=== PATIENT | female | born 1990 | race African-American/Black ===

== ENCOUNTER 2020-01-21 09:53 | Day surgery (SDC) | payer MEDICAID ==
[~2020-01-21 09:53] MED LIST: BUPIVACAINE HCL 0.25 % INJ/PF (2.5 MG/1 ML) 30 ML VIAL ONE; BUPIVACAINE HCL 0.5%-EPI 1:200000 INJ/PF 30 ML VIAL ONE; BUPIVACAINE INJ/PF LIPOSOME/PF 266 MG/20 ML SDV ONE; RINGERS SOLUTION,LACTATED 1,000 ML IV PRN
[2020-01-21 11:10] LABS: HEMATOCRIT 29.8 % (36.0-47.0); HEMOGLOBIN 9.4 g/dL (12.0-15.5); MEAN CORPUSCULAR HEMOGLOBIN 22.9 pg (27.0-33.4); MEAN CORPUSCULAR HGB CONC 31.7 g/dL (32.0-36.0); MEAN CORPUSCULAR VOLUME 72 fl (80-97); PLATELET COUNT 384 10^3/uL (150-450); RED BLOOD COUNT 4.13 10^6/uL (3.72-5.28); RED CELL DISTRIBUTION WIDTH 32.7 % (11.5-14.0); WHITE BLOOD COUNT 5.5 10^3/uL (4.0-10.5)
[2020-01-21] MEDS ORDERED: ONDANSETRON HCL INJ/PF 4 MG/2 ML SDV ONE (11:41)
[2020-01-21] MEDS ORDERED: PROPOFOL INJ 200 MG/20 ML VIAL IV ONE (11:41)
[2020-01-21] MEDS ORDERED: DEXAMETHASONE SOD PHOSPHATE INJ 4 MG/1 ML VIAL ONE (11:41)
[2020-01-21] MEDS ORDERED: MIDAZOLAM 2 MG/2 ML INJ ONE (11:41)
[2020-01-21] MEDS ORDERED: FENTANYL CITRATE INJ/PF 100 MCG/2 ML AMPUL ONE (11:42)
[2020-01-21] MEDS ORDERED: PROMETHAZINE HCL INJ 25 MG/1 ML VIAL ONE (12:05)
--- NOTE | 2020-01-21 12:50 | Discharge Summary ---
Discharge Summary (SDC) - Discharge Final Diagnosis: anal fissure and internal hemorrhoids Date of Surgery: 01/21/20 Discharge Date: 01/21/20 Condition: Good Treatment or Instructions: DIET: 1) Clear liquid diet for 10 days. 2) Continue with fiber supplement twice daily. 3) Continue with stool softener twice daily. FOLLOW UP: 1) You may follow up at [facility] in 2 weeks. Call clinic sooner with questions or concerns. Discharge Diet: Other (Comments) - clear liquid for ten days Discharge Activity: Activity As Tolerated Report the Following to Your Physician Immediately: Increase in Pain, Fever over 101 Degrees, Unusual Bleeding, Large Clots
--- NOTE | 2020-01-21 12:51 | Operative Report ---
Operative Report DATE OF SURGERY: 01/21/20 PREOPERATIVE DIAGNOSIS: 1. Anal pain, rule out mass, fissure. 2. Constipatio n. 3. Morbid obesity. 4. 14-week intrauterine POSTOPERATIVE DIAGNOSIS: Same with. 1. Circumferential hemorrhoids, collapsed. 2. Posterior anal fissure. 3. Fecal retention OPERATION: 1. Examination under anesthesia. 2. Fecal disimpaction. 3. Injection of Exparel in the perianal tissue SURGEON: AZUCENA BLANCA ANESTHESIA: Spinal TISSUE REMOVED OR ALTERED: None ESTIMATED BLOOD LOSS: Scant INTRAOPERATIVE FINDINGS: See below PROCEDURE: The patient was taken to the preop holding of the main operating room where spinal anesthesia was induced by Dr. Lazar. Patient was then placed in the supine position, legs in the lithotomy position, and the perineum prepped and draped sterile fashion Surgical plan surgical timeout were conducted. The patient remained hemodynamically stable, with good saturations. An anal rectal exam was performed. The patient was sufficiently relaxed. There was no evidence of anal stenosis. The anal canal admitted index finger without difficulty and we immediately encountered a significant amount of soft stool. We proceeded to digitally disimpact the anal rectal canal of large volume of feces. Once this was accomplished, we dilated the external anal sphincter to to adult fingers. The findings were significant for hemorrhoids at the anal verge, and a posterior anal fissure, chronic. There was no evidence of tumor, mass, or stenosis. At this point felt the operation was complete and the diagnosis made. We anesthetized the perianal tissue with full-strength Exparel, 20 cc. A large Gelfoam plug was inserted into the anal canal. She tolerated procedure well. She was taken recovery in stable condition. The physician assistant front desk manager, Ms. Gresham, provided assistance during this case by: Assisting retracting tissue, instillation of local anesthesia and closure of skin incisions.
[2020-01-21 17:19] VITALS: BP 129/71
== END 2020-01-21 16:30 | disposition home or self-care (01) ==
LOC: OROUT 09:53
PROVIDERS: ATTEND Surgery
DX: K56.41 Fecal impaction (principal); K60.2 Anal fissure, unspecified; O22.42 Hemorrhoids in pregnancy, second trimester; Z3A.14 14 weeks gestation of pregnancy; E66.9 Obesity, unspecified; Z68.41 Body mass index [BMI] 40.0-44.9, adult; K62.5 Hemorrhage of anus and rectum; K62.89 Other specified diseases of anus and rectum; Z88.0 Allergy status to penicillin; D64.9 Anemia, unspecified; Z87.891 Personal history of nicotine dependence; Z79.899 Other long term (current) drug therapy
CPT/HCPCS: 36415; 85027; 00902; 45915; J1100; J2550; J2405; J2704; C9290; 902; J2250; J3010; J3490

== ENCOUNTER 2020-07-05 10:25 | Inpatient (IN) | payer MEDICAID ==
[2020-07-05 11:40] LABS: APPEARANCE,URINE CLEAR; BILIRUBIN,URINE NEGATIVE (NEGATIVE); COLOR,URINE YELLOW; GLUCOSE, URINE NEGATIVE (NEGATIVE); KETONES,URINE NEGATIVE (NEGATIVE); LEUKOCYTE ESTERASE,URINE MODERATE (NEGATIVE); NITRITE,URINE NEGATIVE (NEGATIVE); PROTEIN,URINE NEGATIVE (NEGATIVE); URINE SPECIFIC GRAVITY 1.016; UROBILINOGEN,URINE NEGATIVE mg/dL (<2.0)
[2020-07-05 11:43] LABS: ABSOLUTE EOSINOPHILS # (AUTO) 0.1 10^3/uL (0.0-0.6); ABSOLUTE MONOCYTES (AUTO) 0.5 10^3/uL (0.1-1.4); MONOCYTES % (AUTO) 7.4 % (3-13); TOTAL CELLS COUNTED % (AUTO) 100 %
[2020-07-05 11:54] LABS: ABSOLUTE LYMPHOCYTES (AUTO) 1.2 10^3/uL (0.5-4.7); BASOPHILS % (AUTO) 0.3 % (0-2); HEMATOCRIT 34.2 % (36.0-47.0); HEMOGLOBIN 11.4 g/dL (12.0-15.5); LYMPHOCYTES % (AUTO) 17.9 % (13-45); MEAN CORPUSCULAR HEMOGLOBIN 28.9 pg (27.0-33.4); MEAN CORPUSCULAR HGB CONC 33.2 g/dL (32.0-36.0); MEAN CORPUSCULAR VOLUME 87 fl (80-97); PLATELET COUNT 246 10^3/uL (150-450); RED BLOOD COUNT 3.94 10^6/uL (3.72-5.28); SEGMENTED NEUTROPHILS % (AUTO) 73.4 % (42-78); WHITE BLOOD COUNT 6.8 10^3/uL (4.0-10.5)
[2020-07-05 11:59] LABS: URINE AMPHETAMINES SCREEN NEGATIVE; URINE BARBITURATES SCREEN NEGATIVE; URINE BENZODIAZEPINES SCREEN NEGATIVE; URINE COCAINE SCREEN NEGATIVE; URINE MARIJUANA (THC) SCREEN NEGATIVE; URINE METHADONE SCREEN NEGATIVE; URINE PHENCYCLIDINE SCREEN NEGATIVE
[2020-07-05] MEDS ORDERED: DINOPROSTONE 10 MG VAGINAL INSERT.SR ONE (12:50)
[2020-07-05] MEDS ORDERED: DINOPROSTONE 10 MG VAGINAL INSERT.SR PV PRN (14:09)
[2020-07-05] MEDS ORDERED: RINGERS SOLUTION,LACTATED 1,000 ML IV PRN (14:09)
--- NOTE | 2020-07-05 14:34 | Admission Physical ---
Datetime Report Generated by CPN: 07/05/2020 14:33 CURRENT ADMISSION Hx Assessment: The History has been Reviewed and is Current Chief Complaint: Scheduled Induction of Labor Indication for Induction: Chronic Secondary HTN (Specify Cause); PreEclampsia Admit Impression : Term, Intrauterine ; Induction of Labor Admit Plan: Admit to Unit; Initiate Labor Induction Protocol ALLERGIES Medication Allergies: No Medication Allergies: No Known Allergies (07/05/2020) Latex: No Latex Allergies OBSTETRICAL HISTORY EDC: 07/15/2020 00:00 : 1 Para: 0 Livin Gestational Diabetes: No Rh Sensitization: No Incompetent Cervix: No IRVIN: No Infertility: No ART Treatment: No Uterine Anomaly: No IUGR: No Hx Previous C/S: No Macrosomia: No Hx Loss/Stillborn: No PIH: Yes Hx : No Placenta Previa/Abruption: No Depression/PP Depression: No PTL/PROM: No Post Hemorrhage: No Current Procedures: Ultrasound; NST Obstetrical History Comments: G1 - current, ghtn SEE RECORDS Alcohol: No Marijuana : No Cocaine: No Other Illicit Drugs: No Cigarettes: Current Everyday Smoker. 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 Surgery: No Heart Disease: No Hosp/Surgery: Yes Autoimmune Disorder: No Anesthetic Complications: No Kidney Disease: No Abnormal Pap Smear: No Neuro/Epilepsy: No Psychiatric Disorders: No Other Medical Diseases: No Hepatitis/Liver Disease: No Significant Family History: No Varicosities/Phlebitis: No Trauma/Violence : No Thyroid Dysfunction: No Medical History Comments: hemorrhoid removal 01/2020 INFECTIOUS HISTORY Gonorrhea: No Genital Herpes: No Chlamydia: No Tuberculosis: No Syphilis: No Hepatitis: No HIV/AIDS Exposure: No Rash or Viral Illness: No HPV: No PHYSICAL EXAM General: Normal Neurologic: Normal Heart: Normal Lungs: Normal Abdomen: Normal Extremities: Normal Vital Signs: Reviewed; Within Normal Limits VAGINAL EXAM Dilatation: 1 Effacement: thick Station: -2 Contraction Comments: irreg MEMBRANES Membranes: Intact FETUS A EGA: 38.4 Monitoring: External US FHR Category: Category I Presentation: Vertex Admit Comment: 30yo G1 @ 38w4d into L_D for induction of labor secondary to CHTN with superimpossed pre-e. Pt is A pos, Rubella Immune, GBS neg. also complicated by morbid obesity. Pt was supposed to be induced last night and just arrived in unit for cervidil induction due to census last night. Cervix posterior and still just at 1cm, plan for cervidil unchanged. Reviewed with Dr. Castanon who is the OB production machine operator today and agrees with poc. PLANS FOR LABOR AND DELIVERY Labor and Delivery: None Pain Management: Epidural Feeding Preference: Breast Benefit of Breast Feed Discussed: Yes Circumcision: Yes INFORMED CONSENT Assignment: Aquiles Castanon MD Signature: with User ID: Renaldo : with User ID: [email or web address]
[2020-07-05] MEDS ORDERED: NALBUPHINE HCL INJ 10 MG/1 ML AMPULE INJ ONE (19:46)
[2020-07-05] MEDS ORDERED: PROMETHAZINE HCL INJ 25 MG/1 ML VIAL IV ONE (19:46)
[2020-07-05] MEDS ORDERED: NALBUPHINE HCL INJ 10 MG/1 ML AMPULE ONE (19:50)
[2020-07-05] MEDS ORDERED: PROMETHAZINE HCL INJ 25 MG/1 ML VIAL ONE (19:50)
[2020-07-06] MEDS ORDERED: OXYTOCIN/0.9 % SODIUM CHLORIDE 30 UNIT/500 ML RTUINJ ONE (02:09)
[2020-07-06] MEDS ORDERED: OXYTOCIN/0.9 % SODIUM CHLORIDE 30 UNIT/500 ML RTUINJ IV PRN (02:30)
[2020-07-06] MEDS ORDERED: NIFEDIPINE 30 MG TAB.ER.24 PO ONE ×3 (08:15→08:18)
[2020-07-06] MEDS ORDERED: LABETALOL HCL INJ 20 MG/4 ML DISP.SYRIN IV ONE (08:16)
[2020-07-06 11:24] LABS: ABSOLUTE MONOCYTES (AUTO) 0.6 10^3/uL (0.1-1.4); ABSOLUTE NEUT (AUTO) 7.9 10^3/uL (1.7-8.2); BASOPHILS % (AUTO) 0.3 % (0-2); EOSINOPHILS % (AUTO) 0.2 % (0-6); HEMATOCRIT 36.1 % (36.0-47.0); HEMOGLOBIN 12.2 g/dL (12.0-15.5); MEAN CORPUSCULAR HEMOGLOBIN 29.1 pg (27.0-33.4); MEAN CORPUSCULAR HGB CONC 33.7 g/dL (32.0-36.0); MEAN CORPUSCULAR VOLUME 86 fl (80-97); MONOCYTES % (AUTO) 6.5 % (3-13); PLATELET COUNT 263 10^3/uL (150-450); RED BLOOD COUNT 4.18 10^6/uL (3.72-5.28); RED CELL DISTRIBUTION WIDTH 20.9 % (11.5-14.0); TOTAL CELLS COUNTED % (AUTO) 100 %; WHITE BLOOD COUNT 9.5 10^3/uL (4.0-10.5)
[2020-07-06 11:41] LABS: ALBUMIN 3.6 g/dL (3.5-5.0); ALKALINE PHOSPHATASE 166 U/L (38-126); ANION GAP 10 (5-19); ASPARTATE AMINO TRANSFERASE 34 U/L (14-36); BILIRUBIN,DIRECT 0.2 mg/dL (0.0-0.4); BILIRUBIN,TOTAL 0.6 mg/dL (0.2-1.3); BLOOD UREA NITROGEN 6 mg/dL (7-20); CALCIUM 9.4 mg/dL (8.4-10.2); CARBON DIOXIDE 18 mmol/L (22-30); CHLORIDE 108 mmol/L (98-107); GLUCOSE 87 mg/dL (75-110); TOTAL PROTEIN 7.4 g/dL (6.3-8.2); URIC ACID 4.1 mg/dL (2.5-6.2)
[2020-07-06] MEDS ORDERED: ONDANSETRON HCL INJ/PF 4 MG/2 ML SDV ONE ×2 (11:54→18:59)
[2020-07-06] MEDS ORDERED: EPHEDRINE SULFATE INJ 50 MG/1 ML AMPULE ONE ×2 (12:18→23:16)
[2020-07-06] MEDS ORDERED: FENTANYL/BUPIVACAINE/NS/PF 300 MCG/150 ML RTUINJ EPI ONE (12:18)
[2020-07-06] MEDS ORDERED: ROPIVACAINE HCL 0.2% INJ/PF (2 MG/ML) 20 ML SDV ONE ×2 (12:19→23:05)
[2020-07-06] MEDS ORDERED: ONDANSETRON HCL INJ/PF 4 MG/2 ML SDV IV ONE ×2 (13:00→18:57)
[2020-07-06] MEDS ORDERED: PROMETHAZINE HCL INJ 25 MG/1 ML VIAL IV ONE (17:08)
[2020-07-06] MEDS ORDERED: NALBUPHINE HCL INJ 10 MG/1 ML AMPULE INJ ONE (17:08)
[2020-07-06] MEDS ORDERED: NALBUPHINE HCL INJ 10 MG/1 ML AMPULE ONE (17:13)
[2020-07-06] MEDS ORDERED: PROMETHAZINE HCL INJ 25 MG/1 ML VIAL ONE (17:13)
[2020-07-06] MEDS ORDERED: MISOPROSTOL 0.2 MG TABLET ONE (17:14)
[2020-07-06] MEDS ORDERED: OXYTOCIN 10 UNIT/ML VIAL ONE (17:14)
[2020-07-06] MEDS ORDERED: LIDOCAINE 1% INJ-PF (10 MG/ML) 30 ML SDV ONE (17:14)
[2020-07-06] MEDS ORDERED: HYDRALAZINE HCL INJ/PF 20 MG/1 ML SDV IV ONE (18:57)
[2020-07-06] MEDS ORDERED: HYDRALAZINE HCL INJ/PF 20 MG/1 ML SDV ONE (18:59)
[2020-07-06] MEDS ORDERED: FENTANYL CITRATE INJ/PF 100 MCG/2 ML AMPUL ONE (23:52)
[2020-07-07] MEDS ORDERED: METHYLERGONOVINE MALEATE INJ/PF 0.2 MG/1 ML AMPULE ONE ×2 (02:10→02:12)
[2020-07-07] MEDS ORDERED: OXYTOCIN/0.9 % SODIUM CHLORIDE 30 UNIT/500 ML RTUINJ ONE (02:25)
[2020-07-07] MEDS ORDERED: FENTANYL CITRATE INJ/PF 100 MCG/2 ML AMPUL ONE (02:31)
[2020-07-07] MEDS ORDERED: OXYCODONE-ACETAMINOPHEN 5-325 MG TABLET ONE (02:32)
[2020-07-07] MEDS ORDERED: GENTAMICIN SULFATE INJ 80 MG/2 ML VIAL ONE (06:22)
[2020-07-07] MEDS ORDERED: CLINDAMYCIN 900 MG/D5W RTU 900 MG/50 ML RTUPB IV ONE (06:23)
[2020-07-07] MEDS: CLINDAMYCIN 900 MG/D5W RTU 900 MG/50 ML RTUPB IV SCH ×3 (06:31→22:42)
[2020-07-07] MEDS: GENTAMICIN SULFATE INJ 80 MG/2 ML VIAL IV SCH ×2 (06:59→16:39)
--- NOTE | 2020-07-07 07:14 | Delivery Summary ---
Del Sum A-C Datetime Report Generated by CPN: 07/07/2020 07:14 DELIVERY PERSONNEL DELIVERY PERSONNEL: [id number] Delivery Doctor:: Tosha Tate MD Labor and Delivery Nurse:: Luna Watkins RNsynthetic department supervisor Nurse:: Loco Bunn RN Flight Physician/FAMILY SOCIOLOGIST: Blanka NicoleTORY Flight Physician/FAMILY SOCIOLOGIST: Ntaalya Cheung, ST MATERNAL INFORMATION Delivery Anesthesia: Epidural Medications After Delivery: Pitocin 10 Units IM; Pitocin 30 Units in 500ml NS/D5W; Methergine 0.2mg IM; Cytotec 1000mcg Per Rectum/Vagina Meds After Delivery Comment: #2 bag of pitocin 30/500 mL Delivery QBL: 3000 Delivery QBL Comment: Total QBL= 3102 Maternal Complications: None Provider Comments: Called to patients room as she was complete and plus 2 station. Patient pushed through 2 contracitons and delivered a viable male infant. was vigorous and cord clamping was delayed for 30 seconds . Cord clamped cut and infant placed skin to skin. Uterine atony encountered. Bimanual massage done and clearing of clots from uterus. Pitocin infusing and second dose given along with Cytotec 1,000mcg PV. Uterus remained filling with blood and gushing with massage. Methergine given and bimanual massage continued. Once slowing down vaginal repair done of a laceration extending 2-3 cm into the left sulcus of the vaginal vault. Repaired in layered closure starting at apex. Fundal massage continuous. Further gush of bright red blood noted. 2 Units PRBC requested and second Large bore IV started. FLuids running in one IV and blood will begin in second. VSS. No tachycardia or hypotension but due to EBL of approximately 2500cc blood was given by emergent release. Continuous fundal massage maintained. Bladder was drained. Fundus felt firm. VSS remained stable. Both Mother and stable currenlty but will monitor closely LABOR SUMMARY EDC: 07/15/2020 00:00 No. Babies in Womb: 1 Attempted: No Labor Anesthesia: Epidural LABOR INFORMATION Reason for Induction: Chronic Primary/Essential HTN; Pre-Eclampsia Onset of Labor: 07/06/2020 10:00 Complete Dilatation: 07/06/2020 20:08 Cervical Ripening Agents: Cervidil Oxytocin: Induction Group B Beta Strep: negative Antibiotics # of Doses: n/a Name of Antibiotic Given: n/a Steroids Given: None Reason Steroids Not Administered: Not Applicable MEMBRANES Membranes Rupture Method: Artificial Rupture of Membranes: 07/06/2020 09:56 Length of Rupture (hr): 16.05 Amniotic Fluid Color: Clear Amniotic Fluid Amount: Scant Amniotic Fluid Odor: None STAGES OF LABOR Stage 1 hr: 10 Stage 1 min: 8 Stage 2 hr: 5 Stage 2 min: 51 Stage 3 hr: 0 Stage 3 min: 1 Total Time in Labor hr: 16 Total Time in Labor min: 0 VAGINAL DELIVERY Episiotomy: None Laceration #1: Perineal Laceration Extension #1: Second Degree Laceration Repair: Yes Laceration Repair Note: Repaired with 2-0 chromic in a layered closure. Sponge Count Correct: Yes CSECTION DELIVERY Primary Indication: N/A Secondary Indication: N/A CSection Incidence: N/A Labor: N/A Elective: N/A CSection Incision: N/A BABY A INFORMATION Infant Delivery Date/Time: 07/07/2020 01:59 Method of Delivery: Vaginal Born in Route : No : N/A Forceps: N/A Vacuum Extraction: N/A Shoulder Dystocia : No PRESENTATION/POSITION BABY A Presentation: Cephalic Cephalic Presentation: Vertex Vertex Position: Left Occipital Anterior Breech Presentation: N/A PLACENTA INFORMATION BABY A Placenta Delivery Time : 07/07/2020 02:00 Placenta Method of Delivery: Spontaneous Placenta Status: Delivered SCORES BABY A Heart Rate 1 min: >100 bpm Resp Effort 1 min: Good Cry Reflex Irritability 1 min: Cough or Sneeze or Pulls Away Muscle Tone 1 min: Active Motion Color 1 min: Body [place], Extremities Blue Resuscitation Effort 1 min: Tactile Stimulation SCORE 1 MIN: 9 Heart Rate 5 min: >100 bpm Resp Effort 5 min: Good Cry Reflex Irritability 5 min: Cough or Sneeze or Pulls Away Muscle Tone 5 min: Active Motion Color 5 min: Body [place], Extremities Blue SCORE 5 MIN: 9 INFORMATION BABY A Gestational Age at Delivery: 38.6 Gestational Status: Early Term- 37- 38.6 Weeks Outcome : Liveborn Condition : Stable Infant Sex: Male IDENTIFICATION BABY A Verification Date/Time: 07/07/2020 05:37 ID Band Number: [id number] Mother's Name Verified: Yes Infant RN Verifying Infant: Elise AngelesFELIX kellogg/Rosita Kauffman RN WEIGHT/LENGTH BABY A Infant Birthweight (gm): 3800 Weight (lb): 8 Weight (oz): 6 Length (in): 21.00 Infant Length (cm): 53.34 CORD INFORMATION BABY A No. Cord Vessels: 3 Nuchal Cord : Around Neck x1, Loose Cord Blood Taken: Yes-For Storage (Mom's Blood type +) (Annotations: Data stored by [facility] on behalf of user) Suction: Mouth; Nose ASSESSMENT BABY A Complications: None Physical Findings at Delivery: Within Normal Limits Skin to Skin: Yes Transferred To: Remains with Mother BABY B INFORMATION : N/A SIGNATURES Signature: with User ID: Rachelle : with User ID: Rachelle
--- NOTE | 2020-07-07 07:14 | Birth Certificate Data ---
Cert Data Datetime Report Generated by DORIAN: 07/07/2020 07:14 CERTIFICATE DATA 47a. Care: Yes (07/05/2020 09:37:Stacia Willoughby RN) 47b. Date of First Visit: 01/04/2020 00:00 (07/05/2020 09:37:Stacia Willoughby RN) 47c. Date of Last Visit: 06/29/2020 00:00 (07/05/2020 09:37:Atiya Ordonez RN) 47d. Number of Visits: 14 (07/05/2020 09:37:Atiya Ordonez RN) 48a. Number of Prev Live Births: 0 (07/05/2020 09:37:Stacia Willoughby RN) 48b. Now Livin (07/05/2020 09:37:Stacia Willoughby RN) 48c. Live Births Now : 0 (07/05/2020 09:37:QS system process) 48e. Losses: 0 (07/05/2020 09:37:Stacia Willoughby RN) RISK FACTORS IN THIS 49a. Diabetes: No (07/05/2020 09:37:Stacia Willoughby RN) 49b. Hypertension: Yes (07/05/2020 09:37:Stacia Willoughby RN) Type of Hypertension: Chronic (07/05/2020 09:37:Arielle Recinos RN) 49c. Previous Births: 0 (07/05/2020 09:37:Atiya Ordonez RN) 49d. Stillborns: No (07/05/2020 09:37:Stacia Willoughby RN) 49d. IUGR: No (07/05/2020 09:37:Stacia Willoughby RN) 49e. Infertility Treatment: No (07/05/2020 09:37:Stacia Willoughby RN) 49f. Previous Cesareans: 0 (07/05/2020 09:37:Atiya Ordonez RN) Mother's Height 50b. Height Inches: 66 (07/06/2020 08:09:QS system process) Mother's Weight 51a. Pre- Weight (lbs): 300 (07/05/2020 09:37:Stacia Willoughby RN) 51b. Weight at Delivery (lbs): 341 (07/06/2020 08:09:QS system process) 52. Dt Last Normal Menses Began: 10/09/2019 00:00 (07/05/2020 09:37:Arielle Recinos RN) Infections Present/Treated 53a. Gonorrhea: No (07/05/2020 09:37:Stacia Willoughby RN) Results this Hospital Visit : Negative (07/05/2020 09:37:Stacia Willoughby RN) 53b. Syphilis: No (07/05/2020 09:37:Stacia Willoughby RN) Results this Hospital Visit: NONREACTIVE (07/05/2020 11:13:QS system process) 53c. Chlamydia: No (07/05/2020 09:37:Stacia Willoughby RN) Results this Hospital Visit: Negative (07/05/2020 09:37:Arielle Recinos RN) 53d. Hepatitis B: No (07/05/2020 09:37:Stacia Willoughby RN) Results this Hospital Visit: Negative (07/05/2020 09:37:Stacia Willoughby RN) 53e. Hepatitis C: Negative (07/05/2020 09:37:Stacia Willoughby RN) 53h. Mother Tested for HBsAG: Yes (07/05/2020 09:37:Stacia Willoughby RN) 53i. Date Tested: 01/04/2020 00:00 (07/05/2020 09:37:Stacia Willoughby RN) 53j. Test Result: Negative (07/05/2020 09:37:Stacia Willoughby RN) Obstetric Procedures 54a, b, c. Obstetric Procedures: Ultrasound; NST (07/05/2020 09:37:Stacia Willoughby RN) Cigarette Smoking 55a. 3 Months Before Preg - Ci (07/05/2020 09:37:Stacia Willoughby RN) 55b. 1st Trimester of Preg- Ci (07/05/2020 09:37:Stacia Willoughby RN) 55c. 2nd Trimester of Preg- Ci (07/05/2020 09:37:Stacia Willoughby RN) 55d. 3rd Trimester of Preg- Ci (07/05/2020 09:37:Stacia Willoughby RN) Onset of Labor 56a. PROM >12 Hrs: 16.05 (07/05/2020 09:37:QS system process) 56b. Precipitous Labor <3 Hrs: 16 (07/05/2020 09:37:QS system process) 56c. Prolonged Labor > 20 Hrs: 16 (07/05/2020 09:37:QS system process) 57a. Induction of Labor: Induction (07/05/2020 09:37:Arielle Recinos RN) 57a. Induction of Labor: Cervidil (07/05/2020 13:07:Stacia Willoughby RN) 57c. Non-Vertex Presentation A: Vertex (07/05/2020 09:37:Atiya Ordonez RN) 57d. Steroids - Lung Mat: None (07/05/2020 09:37:Arielle Recinos RN) 57d. Steroids - Lung Mat: Not Applicable (07/05/2020 09:37:Arielle Recinos RN) 57f. Mat [place] or Temp >100.4: 99.1 (07/05/2020 09:37:Atiya Ordonez RN) 57g. Moderate/Heavy Meconium: Clear (07/06/2020 09:56:Arielle Recinos RN) 57h. Intolerance of Labor: N/A (07/05/2020 09:37:Luna Watkins RN) : N/A (07/05/2020 09:37:Luna Watkins RN) 57i. Epidural/Spinal Anesthesia: Epidural (07/05/2020 09:37:Arielle Recinos RN) Method of Delivery 58a. Forceps - Unsuccessful A: N/A (07/05/2020 09:37:Atiya Ordonez RN) 58b. Vacuum - Unsuccessful A: N/A (07/05/2020 09:37:Atiya Ordonez RN) 58c. Presentation at 58c. Presentation at - A : Vertex (07/05/2020 09:37:Atiya Ordonez RN) 58c. Presentation at - A : N/A (07/05/2020 09:37:Atiya Ordonez RN) 58c. Presentation at - A : Cephalic (07/05/2020 19:28:Atiya Ordonez RN) Final Route and Method of Del 58d. Baby A Route/Delivery: Vaginal (07/05/2020 09:37:Atiya Ordonez RN) 58e. Trial of Labor Attempted: No (07/05/2020 09:37:Arielle Recinos RN) 58e. Trial of Labor Attempted A: N/A (07/05/2020 09:37:Arielle Recinos RN) 58e. Trial of Labor Attempted B: N/A (07/05/2020 09:37:Arielle Recinos RN) Maternal Morbidity 59b. 3rd or 4th Degree Lacs: Perineal (07/05/2020 09:37:Tosha Tate, MD) Birthweight Baby A: 3800 (07/05/2020 09:37:Danisha Nelson RN) 60a. Pounds : 8 (07/05/2020 09:37:QS system process) 60b. Ounces: 6 (07/05/2020 09:37:QS system process) 61. GA at Delivery Baby A: 38.6 (07/05/2020 09:37:Atiya Ordonez RN) : Early Term- 37- 38.6 Weeks (07/05/2020 09:37:QS system process) 62a. 5 Minute Baby A: 9 (07/05/2020 09:37:QS system process)
[2020-07-07 07:27] LABS: HEMATOCRIT 34.2 % (36.0-47.0); HEMOGLOBIN 11.2 g/dL (12.0-15.5); MEAN CORPUSCULAR HEMOGLOBIN 28.1 pg (27.0-33.4); MEAN CORPUSCULAR HGB CONC 32.6 g/dL (32.0-36.0); MEAN CORPUSCULAR VOLUME 86 fl (80-97); PLATELET COUNT 254 10^3/uL (150-450); RED BLOOD COUNT 3.97 10^6/uL (3.72-5.28); RED CELL DISTRIBUTION WIDTH 19.5 % (11.5-14.0); WHITE BLOOD COUNT 21.5 10^3/uL (4.0-10.5)
[2020-07-07 07:32] LABS: HEMATOCRIT 33.3 % (36.0-47.0); HEMOGLOBIN 11.1 g/dL (12.0-15.5); MEAN CORPUSCULAR HEMOGLOBIN 29.2 pg (27.0-33.4); MEAN CORPUSCULAR HGB CONC 33.3 g/dL (32.0-36.0); MEAN CORPUSCULAR VOLUME 88 fl (80-97); RED BLOOD COUNT 3.81 10^6/uL (3.72-5.28); RED CELL DISTRIBUTION WIDTH 20.8 % (11.5-14.0)
[2020-07-07 07:33] LABS: ABSOLUTE LYMPHOCYTES# (MANUAL) 0.5 10^3/uL (0.5-4.7); ANISOCYTOSIS 2+; BAND NEUTROPHILS % (MANUAL) 1 % (3-5); BASOPHILS % (MANUAL) 0 % (0-2); EOSINOPHILS % (MANUAL) 0 % (0-6); LYMPHOCYTES % (MANUAL) 3 % (13-45); MONOCYTES % (MANUAL) 0 % (3-13); OVALOCYTES SLIGHT; PLATELET CLUMPS PRESENT; POIKILOCYTOSIS SLIGHT; SEGMENTED NEUTROPHILS % (MAN) 96 % (42-78); TOTAL CELLS COUNTED 100; TOXIC GRANULATION SLIGHT; TOXIC VACUOLATION PRESENT
[2020-07-07 07:34] LABS: PLATELET COMMENT ADEQUATE; PLATELET COUNT 284 10^3/uL (150-450)
[2020-07-07 07:56] LABS: ABSOLUTE LYMPHOCYTES# (MANUAL) 1.5 10^3/uL (0.5-4.7); BAND NEUTROPHILS % (MANUAL) 1 % (3-5); BASOPHILS % (MANUAL) 0 % (0-2); EOSINOPHILS % (MANUAL) 0 % (0-6); LYMPHOCYTES % (MANUAL) 7 % (13-45); MONOCYTES % (MANUAL) 14 % (3-13); SEGMENTED NEUTROPHILS % (MAN) 78 % (42-78); TOTAL CELLS COUNTED 100
[2020-07-07 07:57] LABS: ANISOCYTOSIS 2+; PLATELET COMMENT ADEQUATE
[2020-07-07] MEDS ORDERED: METHYLERGONOVINE MALEATE 0.2 MG TABLET ONE (08:16)
--- NOTE | 2020-07-07 09:03 | PDOC PROGRESS REPORT ---
Subjective-OB Progress Note for:: 07/07/20 - PP Day #1, pt doing well this morning. Still on L&D unit, ready to transfer to PP floor. Pt s/p PPH w/ 2 units PRBC. Denies heavy bleeding, denies CP or SOB. States is hungry and desires to eat breakfast. Physical Exam (OB) Vital Signs: Intake & Output 07/06/20 07/07/20 07/08/20 06:59 06:59 06:59 Weight 154.9 kg - General General Appearance: Appears well, Alert In distress: None - Maternal Morbidity 59. Maternal Morbidity (serious complications experinced by the mother associated with labor and delivery: Maternal transfusion - due to PPH - Lochia Lochia Amount: Scant < 10 ml Lochia Color: Rubra/Red - Abdomen Fundal Height: u/u - u/2 - ff at u/u - Respiratory Respiratory Status: No respiratory distress Breath sounds: Clear - Cardiovascular Rhythm: Regular Heart Sounds: Normal auscultation - Abdominal Distension: No distension Tenderness: Nontender - Genitourinary Genitourinary Note: langley cath in place still - Extremities Upper extremity: Normal inspection Lower extremities: Edema - Neurological Cognition: Normal Orientation: AAOx4 - Psychological Associated symptoms: Normal affect, Normal mood - Skin Skin Temperature: Warm Skin Moisture: Dry Objective-Diagnostic Laboratory: 07/07/20 06:49 07/06/20 10:03 07/05/20 07/06/20 07/06/20 11:13 10:03 10:03 WBC 9.5 RBC 4.18 Hgb 12.2 Hct 36.1 MCV 86 MCH 29.1 MCHC 33.7 RDW 20.9 H Plt Count 263 Seg Neutrophils % 83.0 H Sodium 136.2 L Potassium 4.0 Chloride 108 H Carbon Dioxide 18 L Anion Gap 10 BUN 6 L Creatinine 0.56 Est GFR ( Amer) > 60 Glucose 87 Uric Acid 4.1 Calcium 9.4 Total Bilirubin 0.6 AST 34 Alkaline Phosphatase 166 H Total Protein 7.4 Albumin 3.6 Blood Type A POSITIVE Antibody Screen NEGATIVE 07/07/20 07/07/20 02:30 06:49 WBC 15.0 H 21.5 H RBC 3.81 3.97 Hgb 11.1 L 11.2 L Hct 33.3 L 34.2 L MCV 88 86 MCH 29.2 28.1 MCHC 33.3 32.6 RDW 20.8 H 19.5 H Plt Count 284 254 Seg Neutrophils % Not Reportable Not Reportable Sodium Potassium Chloride Carbon Dioxide Anion Gap BUN Creatinine Est GFR ( Amer) Glucose Uric Acid Calcium Total Bilirubin AST Alkaline Phosphatase Total Protein Albumin Blood Type Antibody Screen Assessment and Plan(PN) - Assessment and Plan (1) PPH ( hemorrhage) Qualifiers: hemorrhage type: secondary hemorrhage Qualified Code(s): O72.2 - Delayed and secondary hemorrhage Is this a current diagnosis for this admission?: Yes (2) Blood transfusion during current hospitalisation Is this a current diagnosis for this admission?: Yes (3) Chronic hypertension affecting Is this a current diagnosis for this admission?: Yes (4) Encounter for induction of labor Is this a current diagnosis for this admission?: Yes Plan:: Continue w/ Gent and Clindamycin x 24 hours then will d/c if remains afebrile. Leave langley cath in place and d/c around 1600 today. Pt may eat, routine PP orders - Time Spent with Patient Time with patient: Less than 15 minutes Medications reviewed and adjusted accordingly: Yes - Disposition Anticipated Discharge Disposition: Home, Self Care Anticipated Discharge Timeframe: within 48 hours
[2020-07-07] MEDS ORDERED: ZOLPIDEM TARTRATE 5 MG TABLET PO PRN (11:02)
[2020-07-07] MEDS ORDERED: ACETAMINOPHEN WITH CODEINE #3 TABLET PO PRN ×2 (11:03)
[2020-07-07] MEDS ORDERED: BENZOCAINE/MENTHOL AEROSOL SPRAY 56 ML TP PRN (11:05)
[2020-07-07] MEDS ORDERED: DIBUCAINE 1% OINTMENT 28 GM PR PRN (11:06)
[2020-07-07] MEDS: IBUPROFEN 800 MG TABLET PO SCH ×2 (14:33→22:40)
[2020-07-07] MEDS: DOCUSATE SODIUM 100 MG CAPSULE PO SCH (17:33)
[2020-07-07] MEDS: FERROUS SULFATE 325 MG TABLET PO SCH (17:33)
[2020-07-07] MEDS: GENTAMICIN SULFATE 160 MG in DEXTROSE 5%-WATER 100 ML IV SCH (19:54)
[2020-07-08] MEDS: GENTAMICIN SULFATE 160 MG in DEXTROSE 5%-WATER 100 ML IV SCH (00:26)
[2020-07-08] MEDS: GENTAMICIN SULFATE INJ 80 MG/2 ML VIAL IV SCH (05:44)
[2020-07-08] MEDS: IBUPROFEN 800 MG TABLET PO SCH ×3 (05:48→21:19)
[2020-07-08 07:40] LABS: ABSOLUTE EOSINOPHILS # (AUTO) 0.1 10^3/uL (0.0-0.6); ABSOLUTE LYMPHOCYTES (AUTO) 2.3 10^3/uL (0.5-4.7); ABSOLUTE MONOCYTES (AUTO) 1.1 10^3/uL (0.1-1.4); ABSOLUTE NEUT (AUTO) 11.8 10^3/uL (1.7-8.2); BASOPHILS % (AUTO) 0.2 % (0-2); EOSINOPHILS % (AUTO) 0.4 % (0-6); HEMATOCRIT 30.1 % (36.0-47.0); HEMOGLOBIN 10.1 g/dL (12.0-15.5); LYMPHOCYTES % (AUTO) 15.1 % (13-45); MEAN CORPUSCULAR HEMOGLOBIN 28.8 pg (27.0-33.4); MEAN CORPUSCULAR HGB CONC 33.6 g/dL (32.0-36.0); MEAN CORPUSCULAR VOLUME 86 fl (80-97); MONOCYTES % (AUTO) 7.1 % (3-13); PLATELET COUNT 222 10^3/uL (150-450); RED BLOOD COUNT 3.51 10^6/uL (3.72-5.28); RED CELL DISTRIBUTION WIDTH 20.2 % (11.5-14.0); SEGMENTED NEUTROPHILS % (AUTO) 77.2 % (42-78); TOTAL CELLS COUNTED % (AUTO) 100 %; WHITE BLOOD COUNT 15.4 10^3/uL (4.0-10.5)
[2020-07-08] MEDS: DOCUSATE SODIUM 100 MG CAPSULE PO SCH ×2 (10:40→17:32)
[2020-07-08] MEDS: FERROUS SULFATE 325 MG TABLET PO SCH ×2 (10:40→17:32)
[2020-07-08] MEDS: SENNOSIDES/DOCUSATE 8.6-50 MG 1 EACH TABLET PO SCH (10:40)
[2020-07-08] MEDS: PRENATAL VITAMIN W DHA CAPSULE PO SCH (10:40)
--- NOTE | 2020-07-08 11:48 | PDOC PROGRESS REPORT ---
Subjective-OB Progress Note for:: 07/08/20 - PP Day #1, s/p PPH and blood transfusion, doing well this morning. Given IV antibiotics. A+,, rubella immune, hx CHTN Physical Exam (OB) Vital Signs: Temp Pulse Resp BP Pulse Ox 97.6 F 72 18 135/59 H 100 07/08/20 07:35 07/08/20 07:35 07/08/20 07:35 07/08/20 07:35 07/08/20 07:35 Intake & Output 07/07/20 07/08/20 07/09/20 06:59 06:59 06:59 Intake Total 1450 Output Total 850 Balance 600 - General General Appearance: Appears well, Alert - PIH/Pre-Eclampsia DTR's: 1 + Clonus: Negative Headache: Absent Epigastric Pain: No Visual Changes: No - Maternal Morbidity 59. Maternal Morbidity (serious complications experinced by the mother associated with labor and delivery: Maternal transfusion - due to PPH - Lochia Lochia Amount: Small 10-25 ml Lochia Color: Rubra/Red - Abdomen Description: Tender, Soft, Round Hernia Present: No Fundal Description: Firm, Midline Fundal Height: u/u - u/2 - Respiratory Respiratory Status: No respiratory distress - Abdominal Distension: No distension Tenderness: Nontender - Genitourinary Genitourinary Note: voiding - Extremities Upper extremity: Normal inspection Lower extremities: Edema - Neurological Cognition: Normal Orientation: AAOx4 - Psychological Associated symptoms: Normal affect, Normal mood - Skin Skin Temperature: Warm Skin Moisture: Dry Objective-Diagnostic Laboratory: 07/08/20 07:16 07/06/20 10:03 07/08/20 07:16 WBC 15.4 H RBC 3.51 L Hgb 10.1 L Hct 30.1 L MCV 86 MCH 28.8 MCHC 33.6 RDW 20.2 H Plt Count 222 Seg Neutrophils % 77.2 Assessment and Plan(PN) - Assessment and Plan (1) PPH ( hemorrhage) Qualifiers: hemorrhage type: secondary hemorrhage Qualified Cod e(s): O72.2 - Delayed and secondary hemorrhage Is this a current diagnosis for this admission?: Yes (2) Blood transfusion during current hospitalisation Is this a current diagnosis for this admission?: Yes (3) Chronic hypertension affecting Is this a current diagnosis for this admission?: Yes (4) Encounter for induction of labor Is this a current diagnosis for this admission?: Yes - Time Spent with Patient Time with patient: Less than 15 minutes Medications reviewed and adjusted accordingly: Yes - Disposition Anticipated Discharge Disposition: Home, Self Care Anticipated Discharge Timeframe: within 24 hours
[2020-07-09] MEDS: IBUPROFEN 800 MG TABLET PO SCH ×2 (05:33→14:10)
[2020-07-09] MEDS: FERROUS SULFATE 325 MG TABLET PO SCH (09:53)
[2020-07-09] MEDS: SENNOSIDES/DOCUSATE 8.6-50 MG 1 EACH TABLET PO SCH (09:53)
[2020-07-09] MEDS: PRENATAL VITAMIN W DHA CAPSULE PO SCH (09:53)
[2020-07-09] MEDS: DOCUSATE SODIUM 100 MG CAPSULE PO SCH (09:53)
--- NOTE | 2020-07-09 09:55 | PDOC DISCHARGE SUMMARY ---
Impression - Admit/DC Date/PCP Admission Date/Primary Care Provider: 07/05/20 10:25 AC MOREL MD Discharge Date: 07/09/20 - PP Day #2, doing well, UOB, voiding, may stay as a KENNEDY, denies dizziness, or heavy bleeding, s/p PPH. Hx CHTN, A+. Rubella immune - Discharge Diagnosis (1) PPH ( hemorrhage) Is this a current diagnosis for this admission?: Yes (2) Blood transfusion during current hospitalisation Is this a current diagnosis for this admission?: Yes (3) Chronic hypertension affecting Is this a current diagnosis for this admission?: Yes (4) Encounter for induction of labor Is this a current diagnosis for this admission?: Yes - Additional Information Resuscitation Status: Full Code Discharge Diet: As Tolerated, Regular Discharge Activity: Activity As Tolerated, No Lifting Over 10 Pounds, Pelvic Rest Referrals: AC MOREL MD [Primary Care Provider] - Home Medications: Prenat 115/Iron Fum/Folic/Dss [ 19 Tablet] 1 each PO DAILY 01/20/20 Ferrous Sulfate [Ferosul] 325 mg PO DAILY 07/05/20 Magnesium Oxide 500 mg PO DAILY 07/05/20 Nifedipine [Procardia XL 30 mg Tablet] 30 mg PO DAILY 07/05/20 Ibuprofen [Motrin 800 mg Tablet] 800 mg PO Q8 tablet 07/09/20 HPI Reason(s) for Admission: Induction of Labor Admission Note: hx CHTN Procedures: NST, Ultrasound, Management of Medical Complications Intrapartum Procedure(s): Spontaneous Vaginal Delivery Complication(s): Laceration-Vaginal, Hemorrhage-Uterine Atony, Other - blood transfusion d/t PPH Laceration-Degree: 2nd Hospital Course 59. Maternal Morbidity (serious complications experinced by the mother associated with labor and delivery: Maternal transfusion - due to PPH Results Laboratory Results: WBC 15.4 10^3/uL (4.0-10.5) H 07/08/20 07:16 RBC 3.51 10^6/uL (3.72-5.28) L 07/08/20 07:16 Hgb 10.1 g/dL (12.0-15.5) L 07/08/20 07:16 Hct 30.1 % (36.0-47.0) L 07/08/20 07:16 MCV 86 fl (80-97) 07/08/20 07:16 MCH 28.8 pg (27.0-33.4) 07/08/20 07:16 MCHC 33.6 g/dL (32.0-36.0) 07/08/20 07:16 RDW 20.2 % (11.5-14.0) H 07/08/20 07:16 Plt Count 222 10^3/uL (150-450) 07/08/20 07:16 Lymph % (Auto) 15.1 % (13-45) 07/08/20 07:16 Smith % (Auto) 7.1 % (3-13) 07/08/20 07:16 Eos % (Auto) 0.4 % (0-6) 07/08/20 07:16 Baso % (Auto) 0.2 % (0-2) 07/08/20 07:16 Absolute Neuts (auto) 11.8 10^3/uL (1.7-8.2) H 07/08/20 07:16 Absolute Lymphs (auto) 2.3 10^3/uL (0.5-4.7) 07/08/20 07:16 Absolute Monos (auto) 1.1 10^3/uL (0.1-1.4) 07/08/20 07:16 Absolute Eos (auto) 0.1 10^3/uL (0.0-0.6) 07/08/20 07:16 Absolute Basos (auto) 0.0 10^3/uL (0.0-0.2) 07/08/20 07:16 Total Counted 100 07/07/20 06:49 Seg Neutrophils % 77.2 % (42-78) 07/08/20 07:16 Seg Neuts % (Manual) 78 % (42-78) 07/07/20 06:49 Band Neutrophils % 1 % (3-5) L 07/07/20 06:49 Lymphocytes % (Manual) 7 % (13-45) L 07/07/20 06:49 Monocytes % (Manual) 14 % (3-13) H 07/07/20 06:49 Eosinophils % (Manual) 0 % (0-6) 07/07/20 06:49 Basophils % (Manual) 0 % (0-2) 07/07/20 06:49 Abs Neuts (Manual) 17.0 10^3/uL (1.7-8.2) H 07/07/20 06:49 Abs Lymphs (Manual) 1.5 10^3/uL (0.5-4.7) 07/07/20 06:49 Abs Monocytes (Manual) 3.0 10^3/uL (0.1-1.4) H 07/07/20 06:49 Absolute Eos (Manual) 0.0 10^3/uL (0.0-0.6) 07/07/20 06:49 Abs Basophils (Manual) 0.0 10^3/uL (0.0-0.2) 07/07/20 06:49 Toxic Granulation SLIGHT 07/07/20 02:30 Toxic Vacuolation PRESENT 07/07/20 02:30 Clumped Platelets PRESENT 07/07/20 02:30 Platelet Comment ADEQUATE 07/07/20 06:49 Poikilocytosis SLIGHT 07/07/20 02:30 Anisocytosis 2+ 07/07/20 06:49 Ovalocytes SLIGHT 07/07/20 02:30 Sodium 136.2 mmol/L (137-145) L 07/06/20 10:03 Potassium 4.0 mmol/L (3.6-5.0) 07/06/20 10:03 Chloride 108 mmol/L (98-107) H 07/06/20 10:03 Carbon Dioxide 18 mmol/L (22-30) L 07/06/20 10:03 Anion Gap 10 (5-19) 07/06/20 10:03 BUN 6 mg/dL (7-20) L 07/06/20 10:03 Creatinine 0.56 mg/dL (0.52-1.25) 07/06/20 10:03 Est GFR ( Amer) > 60 (>60) 07/06/20 10:03 Est GFR (MDRD) Non-Af > 60 (>60) 07/06/20 10:03 Glucose 87 mg/dL (75-110) 07/06/20 10:03 Uric Acid 4.1 mg/dL (2.5-6.2) 07/06/20 10:03 Calcium 9.4 mg/dL (8.4-10.2) 07/06/20 10:03 Total Bilirubin 0.6 mg/dL (0.2-1.3) 07/06/20 10:03 Direct Bilirubin 0.2 mg/dL (0.0-0.4) 07/06/20 10:03 Neonat Total Bilirubin Not Reportable 07/06/20 10:03 Neonat Direct Bilirubin Not Reportable 07/06/20 10:03 Neonat Indirect Bili Not Reportable 07/06/20 10:03 AST 34 U/L (14-36) 07/06/20 10:03 ALT 25 U/L (<35) 07/06/20 10:03 Alkaline Phosphatase 166 U/L (38-126) H 07/06/20 10:03 Lactate Dehydrogenase 238 U/L (120-246) 07/06/20 10:03 Total Protein 7.4 g/dL (6.3-8.2) 07/06/20 10:03 Albumin 3.6 g/dL (3.5-5.0) 07/06/20 10:03 Urine Color YELLOW 07/05/20 11:00 Urine Appearance CLEAR 07/05/20 11:00 Urine pH 6.0 (5.0-9.0) 07/05/20 11:00 Ur Specific [place] 1.016 07/05/20 11:00 Urine Protein NEGATIVE mg/dL (NEGATIVE) 07/05/20 11:00 Urine Glucose (UA) NEGATIVE mg/dL (NEGATIVE) 07/05/20 11:00 Urine Ketones NEGATIVE mg/dL (NEGATIVE) 07/05/20 11:00 Urine Blood NEGATIVE (NEGATIVE) 07/05/20 11:00 Urine Nitrite NEGATIVE (NEGATIVE) 07/05/20 11:00 Urine Bilirubin NEGATIVE (NEGATIVE) 07/05/20 11:00 Urine Urobilinogen NEGATIVE mg/dL (<2.0) 07/05/20 11:00 Ur Leukocyte Esterase MODERATE (NEGATIVE) H 07/05/20 11:00 Urine Ascorbic Acid NEGATIVE (NEGATIVE) 07/05/20 11:00 Urine Opiates Screen NEGATIVE 07/05/20 11:00 Urine Methadone Screen NEGATIVE 07/05/20 11:00 Ur Barbiturates Screen NEGATIVE 07/05/20 11:00 Ur Phencyclidine Scrn NEGATIVE 07/05/20 11:00 Ur Amphetamines Screen NEGATIVE 07/05/20 11:00 U Benzodiazepines Scrn NEGATIVE 07/05/20 11:00 Urine Cocaine Screen NEGATIVE 07/05/20 11:00 U Marijuana (THC) Screen NEGATIVE 07/05/20 11:00 RPR NONREACTIVE (NONREACTIVE) 07/05/20 11:13 Blood Type A POSITIVE 07/05/20 11:13 Antibody Screen NEGATIVE 07/05/20 11:13 Crossmatch See Detail 07/05/20 11:13 Plan Plan of Treatment: d/c home. F/up with [facility] in one week for BP check Time Spent: Less than 30 Minutes
[2020-07-09 11:41] VITALS: BP 142/54
[2020-07-09] MEDS ORDERED: MEASLES,MUMPS&RUBELLA VACC/PF 0.5 ML VIAL SUBCUT PRN (12:30)
[2020-07-09] MEDS ORDERED: DIPH/PERTUSS(ACELL)/TETANUS VAC/PF 0.5 ML SYR (>=10YO) IM PRN (12:30)
== END 2020-07-09 14:23 | disposition home or self-care (01) | DRG 807 ==
LOC: LR 10:25 → 2S 07-07 09:45
PROVIDERS: ADMIT Obstetrics & Gynecology; ATTEND Obstetrics & Gynecology
PROC: 10907ZC Drainage of Amniotic Fluid, Therapeutic from Products of Conception, Via Natural or Artificial Opening (ICD-10-PCS; 2020-07-06)
PROC: 3E033VJ Introduction of Other Hormone into Peripheral Vein, Percutaneous Approach (ICD-10-PCS; 2020-07-06)
PROC: 10E0XZZ Delivery of Products of Conception, External Approach (ICD-10-PCS; principal; 2020-07-07)
PROC: 0KQM0ZZ Repair Perineum Muscle, Open Approach (ICD-10-PCS; 2020-07-07)
PROC: 30233N1 Transfusion of Nonautologous Red Blood Cells into Peripheral Vein, Percutaneous Approach (ICD-10-PCS; 2020-07-07)
DX: O16.4 Unspecified maternal hypertension, complicating childbirth (principal); Z37.0 Single live birth; O72.2 Delayed and secondary postpartum hemorrhage; O70.1 Second degree perineal laceration during delivery; O69.81X0 Labor and delivery complicated by cord around neck, without compression, not applicable or unspecified; O99.214 Obesity complicating childbirth; E66.01 Morbid (severe) obesity due to excess calories; Z3A.38 38 weeks gestation of pregnancy; Z87.891 Personal history of nicotine dependence
CPT/HCPCS: 1967; 36415; 36430; 80053; 80307; 81005; 83615; 84550; 85025; 86592; 86850; 86900; 86901; 86920; 90715; J0360; J1580; J2210; J2300; J2405; J2550; J2590; J2795; J3010; J3490; J7060; P9016